=== PATIENT | female | born 1995 | race Caucasian/White ===

== ENCOUNTER 2017-02-27 02:06 | Emergency (ER) | payer SELFPAY ==
[~2017-02-27 02:06] MED LIST: HYDR-3533 PO; IBUP600 PO; ZOFR4TAB3 SL
[2017-02-27 02:08] VITALS: BP 131/59; PULSE 73; RESP 15; TEMP 98.5; O2SAT 98
== END 2017-02-27 02:45 | disposition left against medical advice (07) ==
LOC: NED 02:06
DX: Z53.9 Procedure and treatment not carried out, unspecified reason (principal)
CPT/HCPCS: 99281